=== PATIENT | female | born 1970 | race Caucasian/White ===

== ENCOUNTER 2017-10-29 00:47 | Inpatient (IN) | payer OTHER ==
[2017-10-29] VITALS (7 sets, daily range): BP systolic 98–118; BP diastolic 58–79
[~2017-10-29] VITALS: Ht 162.6 cm; Wt 113.1 kg
--- NOTE | ~2017-10-29 | D ---
[facility] [place] [address] DISCHARGE SUMMARY Name: FARHAT POWER Wanda Room #: 448-P [facility] IN ..#: [id number] Admission: 10/29/17 Attend Phys: Tomasz Trujillo Discharge: 11/04/17 Date of : 68 Report #: [id number] THIS REPORT FOR: //name// CC: Maribel Trujillo DATE OF SERVICE: 11/04/2017 HISTORY OF PRESENT ILLNESS: The patient is a 47-year-old female with complicated past medical history, who came to the hospital for exacerbation of left hip pain, that started the day before admission. The patient had hip replacement about a year ago. She sustained fracture after that, as a result of fall. At this time, the patient was found to have no fracture, but her CRP was elevated. Please refer to admission H and P for details. HOSPITALIZATION COURSE: The patient was admitted with acute on chronic left hip pain. Orthopedic surgeon was consulted. Infection was suspected based on elevated CRP. Fluid aspiration grew MSSA. Infectious disease was consulted, and the patient was treated with cefazolin. The patient did well. At some point, hematoma was also suspected, but ultrasound did not show significant blood collection. The patient was also found to have elevated glucose greater than 500s, that has normalized on IV fluids and insulin. The patient also developed anemia when she was here in the hospital. She does have a chronic anemia, with hemoglobin of 7.0 to 8.7. Lowest hemoglobin was 6.4. At that point, the patient received blood transfusion. Currently, hemoglobin is 7.6. The patient's multiple chronic medical conditions are stable. She will be discharged home today on outpatient followup. Final recommendation regarding antibiotics are pending. The patient will go home once antibiotic regimen is determined. DISCHARGE DIAGNOSES: 1. Left hip pain, likely due to infection, aspiration is consistent with methicillin-susceptible Staphylococcus aureus. The patient is treated with Ancef. Duration and dose will be determined by infectious disease specialist. 2. Morbid obesity. 3. Diabetes mellitus type 2, hemoglobin A1c of 7.8%. 4. Hypothyroidism, TSH approximately 10. Continue same dose Synthroid, and repeat TSH as an outpatient in 3-4 weeks. 5. Chronic respiratory failure, on oxygen supplementation. 6. Acute on chronic anemia, status post blood transfusion. Current hemoglobin is 7.6. [address] [address] DISCHARGE SUMMARY Name: FARHAT POWER Wanda Room #: 448-[facility] IN ..#: [id number] Admission: 10/29/17 Attend Phys: Tomasz Trujillo Discharge: 11/04/17 Date of : 68 Report #: [id number] 8. Chronic kidney disease stage 3. DISPOSITION: The patient is discharged home. DISCHARGE MEDICATIONS: Please refer to the medication reconciliation list. Again, antibiotic regimen will be determined by infectious disease specialist. Currently, the patient is on Ancef IV. FOLLOWUP PLAN: 1. Follow up with the primary care physician in 1-2 weeks. 2. Follow up with infectious disease specialist and orthopedic surgeon as advised. I spent greater than 30 minutes to coordinate the patient's discharge from the hospital. <ELECTRONICALLY SIGNED> By: Rafy Buchanan MD 11/05/17 0709 [id number] [id number] Rafy Buchanan MD /nt
--- NOTE | ~2017-10-29 | S ---
[facility] [place] [address] SURGICAL PATH RPT PROCEDURE Name: FARHAT POWER Room #: 448-P ADM IN M.R.#: [id number] Admission: 10/29/17 Date of : 68 Discharge: Report #: [id number] Path Case #: [id number] PATHOLOGY REPORT COLLECTION DATE: 10/31/2017 RECEIVED DATE: 10/31/2017 SUBMITTING PHYS: Dr. Tomasz Trujillo OTHER PHYS: Dr. Maribel Bishop SPECIMEN(S) RECEIVED: A.Peripheral smear * * * * * * * * * * * * FINAL DIAGNOSIS: Peripheral blood smear: - Pancytopenia including severe normocytic anemia, moderate leukopenia and moderate thrombocytopenia (see comment). COMMENT: Overall, the peripheral blood smear shows pancytopenia with severe normocytic anemia, moderate leukopenia and moderate thrombocytopenia. The etiology of the findings is unclear based entirely on slide review. No immature or markedly atypical cells are identified. Potential causes of pancytopenia include infections, drug reactions and primary bone marrow disorders. Other causes of normocytic anemia include anemia of chronic disease, treated and/or compensated vitamin and mineral deficiencies, acute blood loss, dilutional and primary bone marrow disorders. Correlation with clinical history and additional laboratory data is recommended. (CLW:aquiles; 11/03/2017) PATHOLOGIST: Deepa Trivedi M.D. REPORT ELECTRONICALLY SIGNED BY: Deepa Trivedi M.D. DATE/TIME: 11/03/2017 21:21 * * * * * * * * * * * * MICROSCOPIC DESCRIPTION: CBC Data (10/31/17): WBC 2,500 /uL, RBC 2.47, hemoglobin 7.0 g/dL, hematocrit 21.5%, MCV 86.9 fL, MCH 28.2 pg, MCHC 32.4 g/dL, RDW 16.9%. Platelet count 90,000 /uL. Manual white blood cell differential: segs 62%, lymphs 30%, and monos 8%. Peripheral Blood Smear: Cytomorphological examination of the Arguelles's stained peripheral blood smear confirms the provided data. Red blood cells show severe normocytic anemia with mild anisocytosis. No significant poikilocytosis is identified. No schistocytes or microspherocytes are seen. White blood cells are mild to moderately decreased in [address] [address] SURGICAL PATH RPT PROCEDURE Name: FARHAT POWER Wanda Room #: 448-P ADM IN M.R.#: [id number] Admission: 10/29/17 Date of : 68 Discharge: Report #: [id number] Path Case #: [id number] number. They are predominantly segmented neutrophils with reactive changes. They are without significant dyspoiesis or significant left shift. Lymphocytes are predominantly small, round and mature appearing with condensed chromatin and scant cytoplasm with admixed large granular lymphocytes and rare reactive appearing lymphocytes. On scanning, no markedly atypical lymphoid cells are seen. Monocytes are mature. Platelets are mild to moderately decreased in number and mainly normal in morphology with rare larger platelets noted. GROSS PATHOLOGY: Received are three peripheral blood smears (one Arguelles stained and two unstained) all labeled Farhat Power CLINICAL HISTORY: 47 year old woman with pancytopenia. Morphologic review of the peripheral blood smear is requested by the patient's physician. INITIAL CPT CODE(S): A; [place] Professional services performed by [facility] at [place] [address], [place] [address] Technical services performed by [facility] at [address] [place] [address], [address], [place] [address]. [facility] [address] [place] [address] PHONE: [phone] DIRECTOR: Lawrence Duncan M.D. * * * END OF REPORT * * *
--- NOTE | ~2017-10-29 | HC ---
[facility] [place] [address] CONSULTATION Name: POWERFARHAT Wanda Room #: 448-P [facility] IN M.R.#: [id number] Admission: 10/29/17 Attend Phys: Tomasz Trujillo Discharge: 11/04/17 Date of : 68 Report #: [id number] THIS REPORT FOR: //name// CC: Maribel Trujillo DATE OF SERVICE: 10/29/2017 CHIEF COMPLAINT: Left hip pain. HISTORY OF PRESENT ILLNESS: The patient is a 47-year-old female who was admitted through the Emergency Department at [facility] today for complaints of worsening left hip pain over the last 2 days. The patient reports that she broke her left hip in 05/2016 and in 08/2016, the implant became infected and she had an explant performed at that time. The patient reports that the treating surgeon at [facility] told her that they do not recommend reimplantation and that she would just have to live with this. Since that time, the patient has been using a wheelchair for ambulation, although she does stand to do transfers. The patient has been on chronic pain management for the left hip since then. The patient denies any recent falls, change of activity level or any other new injuries, but over the last 2 days, has noticed worsening left hip pain. She also complains of a wound over the lateral aspect of the left hip that she attributes to using diclofenac topical gel daily for pain control and thinks that this may have contributed to the skin irritation and wound. The patient localizes the pain to the anterior aspect of the hip and anterior-superior aspect of the thigh. She has not noticed any redness or swelling in the left hip, although does note that her lower legs bilaterally have been more red, swollen and tender lately. PAST MEDICAL HISTORY: Significant for SOM, dehydration, hip pain, diabetes, hypertension, hypothyroid, COPD and tachycardia. PAST SURGICAL HISTORY: Significant for left hip fracture in 05/2016, followed by left hip hemiarthroplasty. Left hip infection with hardware explantation in 08/2016. MEDICATIONS: Please see medical record for complete list, but include hydrocodone, diclofenac gel topical to the left hip, levothyroxine, paroxetine, atorvastatin, ziprasidone, baclofen, mirtazapine, pantoprazole, trazodone, pregabalin, zolpidem, losartan, insulin lispro, ropinirole, clonazepam, Lomotil, Symbicort, Spiriva and metformin. ALLERGIES: No known drug allergies. SOCIAL HISTORY: The patient reports that she lives with her ulgeihcm-pi-afp; is nonambulatory, except to stand to do transfers, otherwise uses a wheelchair for [address] [address] CONSULTATION Name: FARHAT POWER Room #: 448-P [facility] IN M.R.#: [id number] Admission: 10/29/17 Attend Phys: Tomasz Trujillo Discharge: 11/04/17 Date of : 68 Report #: [id number] ambulation assistance. She is a former cigarette smoker with a 06-sjzf-elbs history. She denies any alcohol use. PHYSICAL EXAMINATION: GENERAL: The patient is a well-developed, obese female, in no acute distress. VITAL SIGNS: Temperature 36.9 degrees Celsius, blood pressure 98/67 and pulse rate 103. Height 162 cm and weight 113 kilos. EXTREMITIES: Left lower extremity: Left lower extremity is neurovascularly intact. Edema and erythema noted in the bilateral lower legs. There is tenderness to palpation of the anterior aspect and lateral aspect of the left hip. Pain with attempted hip range of motion. There is a lateral-based incision that appears healed. At the superior most aspect of the incision, there is an area of superficial skin breakdown, approximately 3 cm x 3 cm; in the center of this, there appears to be a small tract. This was not probed to check for deficit. No exudates noted about this. No significant warmth or redness noted about the left hip. LABORATORY DATA: White cell count 3.0, hemoglobin 8.7 and ESR 69. Glucose random is 302. IMAGING: AP of the pelvis performed on 10/29/2017 showed surgical absence of the proximal left femur, including the intertrochanteric region and the left femoral head heterotopic bone is present about the capsule of the left hip and appears chronic. No evidence of definite fracture or bone destruction. IMPRESSION: 1. Zomxu-xz-pukddwt left hip pain, status post left hip infection with hardware explantation in 08/2016. Small wound on the lateral aspect of the left hip. 2. Diabetes mellitus, uncontrolled. 3. Bilateral lower extremity cellulitis. 4. Multiple other comorbidities. PLAN: We discussed the patient does have a wound on the lateral aspect of the left hip; she says that this is a newer wound and had not been there previously. She has been using diclofenac gel on the hip for pain control and thinks that this may have caused some skin irritation and may have caused this wound. I am not sure that this is the case. However, there has already been a culture taken of this area and these are pending. We will await these results. The patient has already been seen by Infectious Disease and we will help them handle this left hip wound and antibiotic treatment. Pending the results of this culture, we could consider further imaging to follow up the left hip pain. However, there is no evidence of bony destruction seen on the x-rays, but this does not rule out an osteomyelitis. Her treating surgeon at [facility], per the patient, reports that they did not recommend the reimplantation of hardware and we discussed if the patient wished to obtain a second opinion on this. She could do that; however, I do not think that this is a procedure of that to be [facility] [address] [place] [address] CONSULTATION Name: FARHAT POWER Room #: 448-P [facility] IN [facility].#: [id number] Admission: 10/29/17 Attend Phys: Tomasz Trujillo Discharge: 11/04/17 Date of : 68 Report #: [id number] performed for her while she is admitted to the hospital. We will focus on pain control and making sure that there is not a deep infection in the left hip at this point and then she could seek a second opinion if desired after being discharged from the hospital. <ELECTRONICALLY SIGNED> By: BRIONNA Dumont 11/07/17 1533 1347 [id number] BRIONNA Dumont /nt
--- NOTE | ~2017-10-29 | HC ---
[facility] [place] [address] CONSULTATION Name: FARHAT POWER Wanda Room #: 448-P ADM IN M.R.#: [id number] Admission: 10/29/17 Attend Phys: Tomasz Trujillo Discharge: Date of : 68 Report #: [id number] THIS REPORT FOR: //name// CC: Maribel Trujillo DATE OF SERVICE: 10/29/2017 REASON FOR CONSULTATION: I was asked to evaluate concerning possible left hip infection. HISTORY OF PRESENT ILLNESS: The patient was a 47-year-old diabetic who had a fractured left hip, underwent total hip arthroplasty in 2016. She subsequently developed infection within several months with hardware explantation. Prolonged IV antibiotic therapy. She was left with a Girdlestone. No plan for reimplantation. The patient has been essentially wheelchair bound since. She is able to stand on her right leg, but does not walk. She lives at home with her omzzcvdi-ax-mze. Blood sugar control has been fair. Two days ago, noticed increased pain in her left hip. She had no fever, chills or sweats. She has had lower extremity swelling. Blood sugar control has worsened. The patient does note that she had an MRSA infection in 2016. REVIEW OF SYSTEMS: Notes no headache, cough, sputum, nausea, vomiting, diarrhea, dysuria or frequency. She has had no specific trauma. Yesterday, she did note some drainage to her left hip incision. ALLERGIES: None known. MEDICATIONS: As noted on her MAR, now on vancomycin. PAST MEDICAL HISTORY: COPD, smoker, hypertension, hypothyroidism, diabetes, anxiety and depression. PAST SURGICAL HISTORY: She had right knee surgery. FAMILY HISTORY: COPD. SOCIAL HISTORY: Past smoker of cigarettes. No significant alcohol intake. PHYSICAL EXAMINATION: VITAL SIGNS: Afebrile and hemodynamically stable. GENERAL: She was alert and cooperative. Had multiple scars over her face, back, upper extremities. HEENT: Unremarkable. NECK: Supple. LUNGS: Clear. [facility] [address] [place] [address] CONSULTATION Name: FARHAT POWER Room #: 448-P [facility] IN .R.#: [id number] Admission: 10/29/17 Attend Phys: Tomasz Trujillo Discharge: Date of : 68 Report #: [id number] HEART: Regular, without murmur. ABDOMEN: Soft and nontender. EXTREMITIES: 2+ lower extremity edema with venous stasis dermatitis changes and bilateral mild erythema. Left leg had erythema extending up to her medial distal thigh. No adenopathy in the groin. Left hip incision had a small wound to the proximal portion with apparent sinus tract. Serosanguineous drainage was identified. No surrounding erythema. No fluctuance. LABORATORY STUDIES: Blood glucose levels have been 300-550 range. Sodium 135, potassium 5.6, bicarbonate 29, creatinine 1.6, lactate 1.8. CRP 29, hemoglobin 8.7, platelet count 108,000. WBC 3, 65% segs, 24% lymphs. Blood cultures are pending. X-ray shows postoperative changes from Girdlestone. MRI scan is pending. IMPRESSION: A 47-year-old diabetic with venous stasis dermatitis changes along with increased pain in her left hip and sinus tract. Would be concerned about residual sequestrum of infection. She previously had methicillin resistant Staphylococcus aureus. RECOMMENDATION: Continue MRSA coverage with vancomycin. Await MRI scan. Obtain sedimentation rate, and culture from the sinus tract. <ELECTRONICALLY SIGNED> By: Aj Osorio MD 10/30/17 2102 1111 [id number] Aj Osorio MD /nt
[~2017-10-29 00:47] MED LIST: ALBUTEROL NEB; ALBUTEROL2.5 MG/32 IH; AMARYL2 MG PO; AMBIEN 5 MG TABL5 M1 PO; AUGMENTIN 875-1 EACH PO; DESYREL150 MG PO; DUONEB 2.5-0.5 M3 ML INH; GEMFIBROZIL; GLUCOPHAGE1000 MG PO; LEVAQUIN 500 M500 MG PO; OXYGEN; PAXIL10 MG PO; PREDNISOLONE 5 M5 M1 PO; PRINIVIL; PROTONIX 20 MG20 M1 PO; PROVENTIL HFA6.7 G1 INH; SYNTHROID150 MCG PO
[2017-10-29 01:43] LABS: CALCIUM 9.3 mg/dL (8.5-10.1); CREATININE 1.6 mg/dL (0.6-1.0); POTASSIUM 5.6 mmol/L (3.5-5.1)
[2017-10-29 01:44] LABS: ABSOLUTE NEUTROPHILS 1.9 thou/uL (1.4-8.2); EOSINOPHILS 1.4 % (0.0-3.0); HEMATOCRIT 26.9 % (37.0-47.0); HEMOGLOBIN 8.7 gm/dL (12.0-15.0); LYMPHOCYTES 24.5 % (24.0-44.0); MCH 28.4 pg (26.0-34.0); MCHC 32.1 g/dL (28.0-37.0); MCV 88.2 fL (80.0-100.0); MONOCYTES 7.8 % (1.0-8.0); PLATELET COUNT 108 thou/uL (150-400); POLYS 65.3 % (36.0-66.0); RBC 3.05 mil/uL (4.20-5.00); RDW 16.5 % (10.5-14.5)
[2017-10-29] MEDS ORDERED: LIPITOR 20 MG T20 M1 PO (04:15)
[2017-10-29] MEDS ORDERED: ZIPRASIDONE HCL60 MG PO (04:17)
[2017-10-29] MEDS ORDERED: LIORESAL 10 MG10 MG PO (04:18)
[2017-10-29] MEDS ORDERED: DICLOFENAC SODI75 MG PO (04:21)
[2017-10-29] MEDS ORDERED: REMERON15 MG PO (04:22)
[2017-10-29] MEDS ORDERED: PROTONIX 20 MG20 M1 PO (04:24)
[2017-10-29] MEDS ORDERED: TRAZODONE HCL100 MG PO (04:26)
[2017-10-29] MEDS ORDERED: LYRICA 75 MG CA75 MG PO (04:27)
[2017-10-29] MEDS ORDERED: AMBIEN 5 MG TABL5 M1 PO (04:27)
[2017-10-29] MEDS ORDERED: COZAAR 25 MG TA25 MG PO (04:29)
[2017-10-29] MEDS ORDERED: REQUIP5 MG PO (04:32)
[2017-10-29] MEDS ORDERED: HUMALOG100 UNIT/1 SUBQ (04:32)
[2017-10-29] MEDS ORDERED: CLONAZEPAM 0.50.5 M1 PO (04:33)
[2017-10-29] MEDS ORDERED: LOMOTIL TABLET1 EACH PO (04:34)
[2017-10-29] MEDS ORDERED: SYMBICORT160 MCG/4. INH (04:36)
[2017-10-29] MEDS ORDERED: SPIRIVA INH (04:37)
[2017-10-29] MEDS ORDERED: NORCO 5-325 TA1 EACH PO (04:38)
[2017-10-29 05:55] LABS: ALBUMIN 3.3 g/dL (3.4-5.0); DIRECT BILIRUBIN 0.2 mg/dL (<0.1-0.3); TOTAL BILIRUBIN 0.6 mg/dL (<0.1-1.0); TOTAL PROTEIN 8.3 g/dL (6.4-8.2)
[2017-10-30] VITALS (12 sets, daily range): BP systolic 95–153; BP diastolic 56–98
[2017-10-30 04:12] LABS: GLYCOHEMOGLOBIN (HGB A1C) 7.8 % (4.8-5.6)
[2017-10-31 05:31] VITALS: BP 113/56
[2017-10-31 05:41] LABS: HEMATOCRIT 21.5 % (37.0-47.0); MCH 28.2 pg (26.0-34.0); MCHC 32.4 g/dL (28.0-37.0); MCV 86.9 fL (80.0-100.0); PLATELET COUNT 90 thou/uL (150-400); RBC 2.47 mil/uL (4.20-5.00); RDW 16.9 % (10.5-14.5); WBC 2.5 thou/uL (4.0-11.0)
[2017-10-31 06:03] LABS: ALBUMIN 2.7 g/dL (3.4-5.0); CALCIUM 8.5 mg/dL (8.5-10.1); CREATININE 1.7 mg/dL (0.6-1.0); MAGNESIUM 2.1 mg/dL (1.8-2.4); POTASSIUM 4.9 mmol/L (3.5-5.1); TOTAL BILIRUBIN 0.7 mg/dL (<0.1-1.0); TOTAL PROTEIN 7.1 g/dL (6.4-8.2)
[2017-10-31 06:43] LABS: ABSOLUTE NEUTROPHILS 1.6 thou/uL (1.4-8.2); ANISOCYTOSIS 1+
[2017-10-31 08:00] VITALS: BP 119/70
[2017-10-31 11:06] LABS: % SATURATION 13 % (20-39); IRON 43 ug/dL (50-170); TIBC 326 ug/dL (250-450)
[2017-10-31 16:00] VITALS: BP 114/67
[2017-10-31 19:13] VITALS: BP 125/73
[2017-11-01 04:06] VITALS: BP 121/82
[2017-11-01 06:31] LABS: HEMATOCRIT 21.3 % (37.0-47.0); HEMOGLOBIN 6.9 gm/dL (12.0-15.0); MCH 28.5 pg (26.0-34.0); MCHC 32.5 g/dL (28.0-37.0); MCV 87.6 fL (80.0-100.0); RBC 2.43 mil/uL (4.20-5.00); WBC 2.2 thou/uL (4.0-11.0)
[2017-11-01 08:02] VITALS: BP 118/76
[2017-11-01 11:47] LABS: OBSERVED RETIC COUNT 3.5 % (0.6-2.6)
[2017-11-01 15:27] VITALS: BP 108/66
[2017-11-01 19:57] VITALS: BP 125/71
[2017-11-02 04:36] VITALS: BP 109/56
[2017-11-02 09:47] VITALS: BP 107/56
[2017-11-02 19:19] VITALS: BP 123/67
[2017-11-02 20:10] LABS: ABSOLUTE NEUTROPHILS 1.9 thou/uL (1.4-8.2); BASOPHILS 0.8 % (0.0-2.0); HEMOGLOBIN 6.9 gm/dL (12.0-15.0); LYMPHOCYTES 26.4 % (24.0-44.0)
[2017-11-02 20:12] LABS: EOSINOPHILS 1.6 % (0.0-3.0); HEMATOCRIT 20.8 % (37.0-47.0); MCH 28.9 pg (26.0-34.0); MCHC 33.1 g/dL (28.0-37.0); MCV 87.2 fL (80.0-100.0); MONOCYTES 8.4 % (1.0-8.0); PLATELET COUNT 113 thou/uL (150-400); POLYS 62.8 % (36.0-66.0); RBC 2.38 mil/uL (4.20-5.00); RDW 17.2 % (10.5-14.5)
[2017-11-03 04:49] VITALS: BP 120/61
[2017-11-03 06:39] LABS: MCHC 33.3 g/dL (28.0-37.0); MCV 87.1 fL (80.0-100.0); PLATELET COUNT 111 thou/uL (150-400); RBC 2.21 mil/uL (4.20-5.00); RDW 17.4 % (10.5-14.5); WBC 3.5 thou/uL (4.0-11.0)
[2017-11-03 06:47] LABS: CALCIUM 8.8 mg/dL (8.5-10.1); CREATININE 1.4 mg/dL (0.6-1.0); MAGNESIUM 2.4 mg/dL (1.8-2.4); POTASSIUM 4.9 mmol/L (3.5-5.1)
[2017-11-03 06:54] LABS: HEMATOCRIT 19.2 % (37.0-47.0); HEMOGLOBIN 6.4 gm/dL (12.0-15.0)
[2017-11-03 07:41] VITALS: BP 121/72
[2017-11-03 07:58] LABS: ABSOLUTE NEUTROPHILS 2.3 thou/uL (1.4-8.2); ANISOCYTOSIS 1+; PLATELET ESTIMATE DECREASED
[2017-11-03 11:07] VITALS: BP 121/72
[2017-11-03 15:55] VITALS: BP 133/76
[2017-11-03 16:14] VITALS: BP 118/61; BP 139/89
[2017-11-03 20:00] VITALS: BP 139/89
[2017-11-04 01:15] LABS: ABSOLUTE NEUTROPHILS 2.2 thou/uL (1.4-8.2); BASOPHILS 0.5 % (0.0-2.0); EOSINOPHILS 1.1 % (0.0-3.0); HEMATOCRIT 22.9 % (37.0-47.0); HEMOGLOBIN 7.6 gm/dL (12.0-15.0); MCH 28.7 pg (26.0-34.0); MONOCYTES 8.1 % (1.0-8.0); PLATELET COUNT 108 thou/uL (150-400); POLYS 65.3 % (36.0-66.0); RBC 2.63 mil/uL (4.20-5.00); RDW 16.4 % (10.5-14.5); WBC 3.4 thou/uL (4.0-11.0)
[2017-11-04 01:28] LABS: CALCIUM 8.6 mg/dL (8.5-10.1); CREATININE 1.2 mg/dL (0.6-1.0); POTASSIUM 5.1 mmol/L (3.5-5.1)
[2017-11-04 03:42] VITALS: BP 90/54
[2017-11-04 08:56] VITALS: BP 106/70
[2017-11-04] MEDS ORDERED: NORCO 5-325 TA1 EACH PO (13:27)
[2018-05-25] MEDS ORDERED: NORCO 10-325 T1 EACH PO (21:17)
== END 2017-11-04 18:40 | disposition home or self-care (01) | DRG 871 ==
LOC: ER 00:47 → 4S 03:22 → EROBS 03:22 → 4S 03:48 → ENTRNSPT 11-04 16:59 → 4S 11-04 18:40
PROVIDERS: Emergency Medicine; Hospitalist; Internal Medicine Endocrinology, Diabetes & Metabolism; Nurse Practitioner; Nurse Practitioner Acute Care
PROC: 0S9B3ZX Drainage of Left Hip Joint, Percutaneous Approach, Diagnostic (ICD-10-PCS; principal; 2017-10-30)
PROC: 30233N1 Transfusion of Nonautologous Red Blood Cells into Peripheral Vein, Percutaneous Approach (ICD-10-PCS; 2017-11-03)
PROC: 3E0U3BZ Introduction of Anesthetic Agent into Joints, Percutaneous Approach (ICD-10-PCS; 2017-11-03)
DX: A41.9 Sepsis, unspecified organism (principal); E43 Unspecified severe protein-calorie malnutrition; M96.840 Postprocedural hematoma of a musculoskeletal structure following a musculoskeletal system procedure; N17.9 Acute kidney failure, unspecified; L03.116 Cellulitis of left lower limb; L03.115 Cellulitis of right lower limb; Z68.41 Body mass index [BMI] 40.0-44.9, adult; J96.10 Chronic respiratory failure, unspecified whether with hypoxia or hypercapnia; D61.818 Other pancytopenia; J44.9 Chronic obstructive pulmonary disease, unspecified; Z96.642 Presence of left artificial hip joint; I87.2 Venous insufficiency (chronic) (peripheral); E66.01 Morbid (severe) obesity due to excess calories; D64.9 Anemia, unspecified; N18.3 Chronic kidney disease, stage 3 (moderate); E11.22 Type 2 diabetes mellitus with diabetic chronic kidney disease; G25.81 Restless legs syndrome; I12.9 Hypertensive chronic kidney disease with stage 1 through stage 4 chronic kidney disease, or unspecified chronic kidney disease; E03.9 Hypothyroidism, unspecified; F31.9 Bipolar disorder, unspecified; E11.65 Type 2 diabetes mellitus with hyperglycemia; E86.0 Dehydration; F41.9 Anxiety disorder, unspecified; F17.210 Nicotine dependence, cigarettes, uncomplicated; Y83.8 Other surgical procedures as the cause of abnormal reaction of the patient, or of later complication, without mention of misadventure at the time of the procedure; Z99.81 Dependence on supplemental oxygen; Z79.4 Long term (current) use of insulin; Y92.89 Other specified places as the place of occurrence of the external cause; Z79.84 Long term (current) use of oral hypoglycemic drugs; Z79.899 Other long term (current) drug therapy; Z87.81 Personal history of (healed) traumatic fracture; Z82.5 Family history of asthma and other chronic lower respiratory diseases; Z23 Encounter for immunization
CPT/HCPCS: 10100

== ENCOUNTER 2017-12-15 16:23 | Emergency (ER) | payer OTHER ==
[~2017-12-15] VITALS: Ht 162.6 cm; Wt 99.8 kg
[~2017-12-15 16:23] MED LIST changes: +CLONAZEPAM 0.50.5 M1 PO; +COZAAR 25 MG TA25 MG PO; +DICLOFENAC SODI75 MG PO; +HUMALOG100 UNIT/1 SUBQ; +LIORESAL 10 MG10 MG PO; +LIPITOR 20 MG T20 M1 PO; +LOMOTIL TABLET1 EACH PO; +LYRICA 75 MG CA75 MG PO; +NORCO 5-325 TA1 EACH PO; +REMERON15 MG PO; +REQUIP5 MG PO; +SPIRIVA INH; +SYMBICORT160 MCG/4. INH; +TRAZODONE HCL100 MG PO; +ZIPRASIDONE HCL60 MG PO
[2017-12-15 18:05] LABS: HEMATOCRIT 27.6 % (37.0-47.0); HEMOGLOBIN 9.2 gm/dL (12.0-15.0); MCHC 33.2 g/dL (28.0-37.0); MCV 90.4 fL (80.0-100.0); PLATELET COUNT 74 thou/uL (150-400); RBC 3.05 mil/uL (4.20-5.00); RDW 18.7 % (10.5-14.5); WBC 2.3 thou/uL (4.0-11.0)
[2017-12-15 18:14] LABS: CALCIUM 9.2 mg/dL (8.5-10.1); CREATININE 1.4 mg/dL (0.6-1.0); POTASSIUM 4.7 mmol/L (3.5-5.1)
[2017-12-15 18:28] LABS: ABSOLUTE NEUTROPHILS 1.4 thou/uL (1.4-8.2)
[2017-12-15 18:29] LABS: ANISOCYTOSIS 2+
[2017-12-15 18:30] LABS: LARGE PLATELETS RARE
== END 2017-12-15 19:16 | disposition home or self-care (01) ==
LOC: ER 16:23
PROVIDERS: Emergency Medicine
DX: S20.212A Contusion of left front wall of thorax, initial encounter (principal); J44.9 Chronic obstructive pulmonary disease, unspecified; L89.329 Pressure ulcer of left buttock, unspecified stage; E11.622 Type 2 diabetes mellitus with other skin ulcer; G89.29 Other chronic pain; F31.9 Bipolar disorder, unspecified; I10 Essential (primary) hypertension; F17.210 Nicotine dependence, cigarettes, uncomplicated; Z86.14 Personal history of Methicillin resistant Staphylococcus aureus infection; X58.XXXA Exposure to other specified factors, initial encounter; Y93.89 Activity, other specified; Y92.89 Other specified places as the place of occurrence of the external cause; Y99.8 Other external cause status; Z79.4 Long term (current) use of insulin

== ENCOUNTER 2018-04-16 00:22 | Inpatient (IN) | payer OTHER ==
[~2018-04-16] VITALS: Ht 160 cm; Wt 120.2 kg
[2018-04-16] VITALS (8 sets, daily range): BP systolic 96–137; BP diastolic 54–90
--- NOTE | ~2018-04-16 | HC ---
[facility] [place] [address] CONSULTATION Name: FARHAT POWER Room #: 357-P ADM IN .R.#: [id number] Admission: 04/16/18 Attend Phys: Magdy Alfonso MD Discharge: Date of : 68 Report #: [id number] THIS REPORT FOR: //name// CC: SIDDHARTHA physician/PCP Magdy Alfonso DATE OF SERVICE: 04/16/2018 CHIEF COMPLAINT: Ulcerations to the left posterior thigh. HISTORY OF PRESENT ILLNESS: This is a 47-year-old white female patient admitted with hyperglycemia. She was noted to have ulcerations on her left posterior thigh and a previous surgical wound in her left hip area and I have been asked to see her with regard to wound care. The patient denies pain in these areas. She states she has had some problems for quite a while. She is not able to ambulate due to the previous hip surgery, likely a Girdlestone type procedure. PAST MEDICAL HISTORY: Positive for COPD, acute kidney injury, hyperglycemia, bipolar disorder and diabetes. ALLERGIES: None. MEDICATIONS: Include albuterol, Synthroid, Paxil, Lipitor, Lioresal, Voltaren, Remeron, Protonix, trazodone, Lyrica, Ambien, Cozaar, Requip, clonazepam, Lomotil, Symbicort, Spiriva, ziprasidone, Emblem, Diflucan, Medrol Dosepak, Keflex, Glucophage. FAMILY HISTORY: Positive for COPD in her mother. SOCIAL HISTORY: The patient did smoke cigarettes previously. Denies alcohol use. REVIEW OF SYSTEMS: CONSTITUTIONAL: The patient denies fever, chills or weight loss. NEUROLOGICAL: The patient denies focal weakness. ENT: The patient denies earache, nasal drainage, sore throat. CARDIOVASCULAR: The patient denies chest pain or palpitations or diaphoresis. PULMONARY: The patient denies cough, shortness of breath. GASTROINTESTINAL: The patient denies nausea, vomiting, diarrhea or abdominal pain. ORTHOPEDIC: The patient does have some shortening of her left lower extremity. She states she is unable to ambulate due to previous hip surgery. Other 14-point review of systems is negative. PHYSICAL EXAMINATION: VITAL SIGNS: At this time include pulse 94, respiratory rate 16, blood pressure [address] [address] CONSULTATION Name: FARHAT POWER Room #: 357-[facility] IN [facility].#: [id number] Admission: 04/16/18 Attend Phys: Magdy Alfonso MD Discharge: Date of : 68 Report #: [id number] 114/77 and temperature 99.0. GENERAL: This is a chronically ill-appearing female patient who appears to be in minimal distress. HEENT: Head is normocephalic. LUNGS: Clear. NECK: Supple. LUNGS: Clear. HEART: Regular rate and rhythm. ABDOMEN: Soft, bowel sounds present. EXTREMITIES: Lower extremities demonstrate a small cutaneous abscesses or folliculitis sites including the left posterior thigh, most are clean and granulating, do not appear to be infected or abscessed at this time. There is a small residual surgical wound to the left anterior hip area. There is no tunneling or undermining at this time. NEUROLOGIC: The patient is alert, does move all 4 extremities spontaneously. LABORATORY DATA: Includes sodium 139, potassium 5.5, chloride 106, CO2 is 27, BUN 26, creatinine 1.4, glucose 300, total protein 7.2, albumin 3.0. White blood cell count is low at 2.4, hemoglobin 9.7. CLINICAL IMPRESSION: 1. Small ulcerations to the left posterior thigh, likely on the basis of small cutaneous abscesses that have spontaneously drained. 2. Surgical wound to the left hip, mostly closed. 3. Uncontrolled type 2 diabetes mellitus. 4. History of osteomyelitis, left hip, status post surgical intervention, possibly a Girdlestone procedure. RECOMMENDATIONS: At this point in time, we will recommend topical gentamicin ointment and bordered gauze dressing to all areas including the left hip and left posterior thigh. She will need turning and repositioning every 2 hours. She will get aggressive nutritional support and continue current medications. I appreciate being asked to see her in consultation. <ELECTRONICALLY SIGNED> By: Juan Alberto Garnica MD 04/17/18 0750 [id number] [id number] Juan Alberto Garnica MD /nt
--- NOTE | ~2018-04-16 | HC ---
[facility] [place] [address] CONSULTATION Name: FARHAT POWER Room #: 357-P ADM IN ..#: [id number] Admission: 04/16/18 Attend Phys: Magdy Alfonso MD Discharge: Date of : 68 Report #: [id number] THIS REPORT FOR: //name// CC: [facility] physician/PCP Magdy Alfonso MD Edna DATE OF SERVICE: 04/16/2018 TRENCHER DRIVER: Magdy Alfonso M.D. REASON FOR CONSULTATION: Cytopenia for months. HISTORY OF PRESENT ILLNESS: The patient is a 47-year-old female who came in for high sugar. She evidently had a recent UTI and was placed on antibiotic, found to have sugars that were high, came to the ER. Here, she was noted to have pancytopenia. On admit, her white count was 2.4. Note that on an ER visit in November, it was 2.3; back in 10/2017, it ranged between 2.2 and 3.5. Her hemoglobin on admit was 9.7. Note that it is the highest it has been since October; back then, it was 8.7 as low as 6.9, and then 9.2 in November. Also, note that her MCV during this time has increased a little bit from about 80s back then to 94, platelet count back then had ranged in October between 89 and 113 and then in November, it was 74; on admit here 40. Differential showed that there is ANC of 2100. Note that when she was here back in October, they did a peripheral smear and was not thought to have any atypical forms. Differential does have decreased lymphocytes and monocytes. Note that they did mention that they do see large platelets. The absolute retic count back in October was 84, which is probably inappropriately low for the patient's amount of anemia. Other labs, I do not have liver functions drawn now, but they are currently pending; in the past, it had been normal. Iron test back in October had been an iron of 43, TIBC 356, percent saturation of 13. The patient did receive three doses of iron sucrose 200 mg daily for 3 days back then and also had C-reactive protein at 29. The patient thinks she may have had an EGD and colonoscopy, maybe 5 years ago, does not recall results, does not recall anything bad with it. Coags were not drawn before. Also lab here notable for peripheral smear pathology review last time she was here. TSH at this admit 0.846. Sed rate 69 back in October. B12 back at last admit had been 856, ferritin and folate pending. Erythropoietin pending. The 25-hydroxy D pending. UA had shown 3+ glucose here. IMAGING: Review does not really show any complex imaging. She did have an MRI of the hip or CT, but it doesnt shows abdomen such as spleen or lymphadenopathy. The patient is a very poor historian and has drifted into sleep during much discussion. She does not appear to be in pain at this time, does not appear to be anxious or in distress, though it is hard to tell because [address] [place] [address] CONSULTATION Name: FARHAT POWER Wanda Room #: 357-P ADM IN M.R.#: [id number] Admission: 04/16/18 Attend Phys: Magdy Alfonso MD Discharge: Date of : 68 Report #: [id number] she is still sleepy. PHYSICAL EXAMINATION: GENERAL: The patient appears her stated age. VITAL SIGNS: She is a very obese female with height of 5 feet 3 on last measurement, 160 cm. Weight is 265 pounds or 120.4 kilograms. Recent blood pressure is 96/57, O2 sat 97%, respirations 16, pulse 70, temperature 96.5 axillary. HEENT: Face is symmetrical. PAST MEDICAL HISTORY: From the chart is notable for history of COPD, requiring 3 liters of oxygen, hypertension, hypothyroidism, type 2 diabetes, supposedly bipolar, anxiety, depression, also a 4-nyea-xgc-day smoker, possible restless leg syndrome, also had a history of a left hip fracture and total hip arthroplasty in 05/2016 with explantation in 08/2016 with MRSA. She has been wheelchair bound since that time, also has chronic pain reported SOCIAL HISTORY: She tells me she lives with family. FAMILY HISTORY: As best I can tell, does not appear to have any hematologic or blood disorders, but it is difficult to tell. MEDICATIONS: In the hospital currently include ropinirole 5 mg at bedtime, trazodone 200 at bedtime, mirtazapine 45 at bedtime, atorvastatin 20 at bedtime, pregabalin 75 b.i.d., paroxetine 60 daily, losartan 25 daily, pantoprazole 20 daily, diclofenac 75 b.i.d., insulin on a sliding scale at 15 units before meals, ipratropium and albuterol 3 mL respiratory therapy q.i.d., levothyroxine 150 mcg daily, baclofen 30 mg t.i.d.; clonazepam 0.5 mg t.i.d., I think that is scheduled; then also various electrolyte replacement medications. ASSESSMENT: 1. Pancytopenia. Counts are really not that much changed from 10/2017 except the platelet count is somewhat lower, this may be related to presumed UTI. We will check additional lab tests including rechecking iron. We will also check a peripheral smear again. We will also check a folate. We will check B12 and TSH if those have not been done recently. We will also check coags, though I do not notice any unusual bruising or bleeding. Also, check ultrasound of abdomen to look for splenomegaly, could also consider bone marrow biopsy if results do not return with information. 2. Hyperglycemia and diabetes, per others. Note that lactate was elevated if I recall. 3. Chronic renal insufficiency with creatinine of around 1.4-1.6. Would use caution with diclofenac. 4. Chronic obstructive pulmonary disease, continues inhalers. 5. Pressure ulcer history, we will defer to others on wound care management. [address] [address] CONSULTATION Name: FARHAT POWER Room #: 357-P [facility] IN M.R.#: [id number] Admission: 04/16/18 Attend Phys: Magdy Alfonso MD Discharge: Date of : 68 Report #: [id number] 6. Hypothyroid, replace. 7. Depression, possible bipolar, possible anxiety. Continue the trazodone, paroxetine, and mirtazapine. 8. History of smoking, encourage cessation. 9. Wheelchair bound. Encourage activity as much as possible. 10. Bipolar, meds per others. 11. Possible urinary tract infection, we will defer to others. We will follow with you. <ELECTRONICALLY SIGNED> By: Ramirez Lechuga MD 04/16/18 1903 [id number] Ramirez Lechuga MD /nt
--- NOTE | ~2018-04-16 | EKG ---
[address] [place] [address] ELECTROCARDIOGRAM REPORT Name: FARHAT POWER Room #: 357-P [facility] IN ..#: [id number] Admission: 04/16/18 Attend Phys: Magdy Alfonso MD Discharge: Date of : 68 Report #: [id number] THIS REPORT FOR: //name// [facility] ED Test Date: 2018-04-16 Test Time: 01:08:25 Pat Name: FARHAT POWER Department: Room: Gender: F Lead Painter: . : 1970 Requested By: Adi Fish Order Number: [id number] MD: Porfirio King Measurements Intervals [place] Rate: 90 P: 47 MI: 165 QRS: -8 QRSD: 84 T: 40 QT: 384 QTc: 470 Interpretive Statements Sinus rhythm Abnormal inferior Q waves No previous ECG available for comparison Electronically Signed On 04-16-2018 8:18:13 CDT by Porfirio King [email or web address] <ELECTRONICALLY SIGNED> By: Porfirio King MD, [facility] 04/16/18 0818 0108 0108 Porfirio King MD, FACC /EPI
[2018-04-16] MEDS ORDERED: NORCO 10-325 T1 EACH PO (00:35)
[2018-04-16] MEDS ORDERED: DIFLUCAN200 MG PO (00:41)
[2018-04-16] MEDS ORDERED: MEDROLDOSEPACK PO (00:42)
[2018-04-16 00:43] LABS: HEMOGLOBIN 9.7 gm/dL (12.0-15.0)
[2018-04-16] MEDS ORDERED: NOVOLOG FL100 UNIT/M SUBQ (00:43)
[2018-04-16] MEDS ORDERED: KEFLEX500 M1 PO (00:44)
[2018-04-16 00:45] LABS: HEMATOCRIT 28.6 % (37.0-47.0); MCH 32.1 pg (26.0-34.0); MCHC 33.8 g/dL (28.0-37.0); MCV 94.8 fL (80.0-100.0); RBC 3.01 mil/uL (4.20-5.00); RDW 15.5 % (10.5-14.5); WBC 2.4 thou/uL (4.0-11.0)
[2018-04-16 00:54] LABS: CALCIUM 8.9 mg/dL (8.5-10.1); CREATININE 1.6 mg/dL (0.6-1.0)
[2018-04-16 01:00] LABS: POTASSIUM 6.5 mmol/L (3.5-5.1)
[2018-04-16 01:05] LABS: URINE BILIRUBIN NEGATIVE (Negative); URINE BLOOD NEGATIVE (Negative); URINE CLARITY CLEAR; URINE COLOR YELLOW; URINE GLUCOSE-RANDOM* 3+ (Negative); URINE KETONES NEGATIVE (Negative); URINE LEUKOCYTES-REFLEX NEGATIVE (Negative); URINE NITRITE-REFLEX NEGATIVE (Negative); URINE PROTEIN (DIPSTICK) NEGATIVE (Negative); URINE UROBILINOGEN 0.2 E.U./dl (0.2-1.0)
[2018-04-16 02:22] LABS: ABSOLUTE NEUTROPHILS 2.1 thou/uL (1.4-8.2); ANISOCYTOSIS SLIGHT; MACROCYTES SLIGHT; POLYCHROMASIA OCCASIONAL
[2018-04-16 02:29] LABS: LARGE PLATELETS RARE; PLATELET COUNT 40 thou/uL (150-400)
[2018-04-16 06:26] LABS: CALCIUM 8.6 mg/dL (8.5-10.1); CREATININE 1.4 mg/dL (0.6-1.0)
[2018-04-16 06:31] LABS: POTASSIUM 5.5 mmol/L (3.5-5.1)
[2018-04-16 09:37] LABS: BE(vivo) 0.4 mmol/L (-2 to +3); PCO2 53.8 mmHg (35.0-45.0); PO2 94.4 mmHg (80.0-100.0); pH 7.318 (7.360-7.450); sO2 96.5 % (92.0-98.0)
[2018-04-16 10:04] LABS: % SATURATION 7 % (20-39); IRON 24 ug/dL (50-170); TIBC 361 ug/dL (250-450)
[2018-04-16 10:05] LABS: APTT 22.4 Seconds (24.5-32.8); DIRECT BILIRUBIN 0.2 mg/dL (<0.1-0.3); PROTIME 10.4 Seconds (9.3-11.4); TOTAL BILIRUBIN 0.4 mg/dL (<0.1-1.0); TOTAL PROTEIN 7.2 g/dL (6.4-8.2)
[2018-04-16 10:21] LABS: FOLIC ACID 16.1 ng/mL (8.6-58.9)
[2018-04-16 22:06] LABS: HEMATOLOGY COMMENTS Note: (()); HEMOGLOBIN 8.2 g/dL (11.1-15.9)
[2018-04-17 03:50] VITALS: BP 153/77
[2018-04-17 04:46] LABS: EOSINOPHILS 1.3 % (0.0-3.0); PLATELET COUNT 45 thou/uL (150-400); POLYS 62.9 % (36.0-66.0)
[2018-04-17 04:48] LABS: ABSOLUTE NEUTROPHILS 1.9 thou/uL (1.4-8.2); BASOPHILS 0.6 % (0.0-2.0); HEMATOCRIT 30.4 % (37.0-47.0); HEMOGLOBIN 10.2 gm/dL (12.0-15.0); LYMPHOCYTES 30.8 % (24.0-44.0); MCHC 33.5 g/dL (28.0-37.0); MCV 95.7 fL (80.0-100.0); MONOCYTES 4.4 % (1.0-8.0); RBC 3.17 mil/uL (4.20-5.00); RDW 15.7 % (10.5-14.5)
[2018-04-17 05:09] LABS: 25-HYDROXY TOTAL 13.7 ng/mL (30.0-100.0)
[2018-04-17 06:10] LABS: GLYCOHEMOGLOBIN (HGB A1C) 8.5 % (4.8-5.6)
[2018-04-17 07:52] VITALS: BP 165/69
[2018-04-17] MEDS ORDERED: NOVOLOG100 UNIT/1 SUBQ (10:16)
[2018-04-17 10:32] VITALS: BP 165/69
[2018-04-17 12:53] VITALS: BP 165/69
[2018-04-17 13:37] VITALS: BP 165/69
[2018-04-17 22:05] LABS: IgG 1711 mg/dL (700-1600)
[2018-04-20 14:09] LABS: CERULOPLASMIN 28.4 mg/dL (19.0-39.0)
[2018-04-20 16:13] LABS: ANA INTERPRETATION Negative (Negative); MITOCHONDRIAL ANTIBODY 6.2 Units (0.0-20.0)
== END 2018-04-17 12:46 | disposition home health service (06) | DRG 637 ==
LOC: ER 00:22 → 3W 01:54 → EROBS 01:54 → 3W 02:42 → ENTRNSPT 04-17 12:32 → EDTRNSPTSTS 04-17 12:35 → 3W 04-17 12:46
PROVIDERS: Emergency Medicine; Hospitalist; Internal Medicine Hematology & Oncology; Nurse Practitioner; Nurse Practitioner Acute Care
DX: E11.65 Type 2 diabetes mellitus with hyperglycemia (principal); R65.11 Systemic inflammatory response syndrome (SIRS) of non-infectious origin with acute organ dysfunction; D61.818 Other pancytopenia; L97.129 Non-pressure chronic ulcer of left thigh with unspecified severity; N17.9 Acute kidney failure, unspecified; J96.10 Chronic respiratory failure, unspecified whether with hypoxia or hypercapnia; J44.9 Chronic obstructive pulmonary disease, unspecified; I12.9 Hypertensive chronic kidney disease with stage 1 through stage 4 chronic kidney disease, or unspecified chronic kidney disease; E03.9 Hypothyroidism, unspecified; F41.9 Anxiety disorder, unspecified; G25.81 Restless legs syndrome; G89.29 Other chronic pain; Z96.642 Presence of left artificial hip joint; E87.5 Hyperkalemia; Z87.891 Personal history of nicotine dependence; L89.159 Pressure ulcer of sacral region, unspecified stage; N18.3 Chronic kidney disease, stage 3 (moderate); E11.22 Type 2 diabetes mellitus with diabetic chronic kidney disease; D50.9 Iron deficiency anemia, unspecified; F31.9 Bipolar disorder, unspecified; Z99.81 Dependence on supplemental oxygen; Z79.4 Long term (current) use of insulin
CPT/HCPCS: 10879

== ENCOUNTER 2018-07-06 19:00 | Inpatient (IN) | payer OTHER ==
[~2018-07-06] VITALS: Ht 162.6 cm; Wt 117.3 kg
--- NOTE | ~2018-07-06 | HC ---
[facility] [place] [address] CONSULTATION Name: FARHAT POWER Room #: 358-P [facility] IN ..#: [id number] Admission: 07/06/18 Attend Phys: Jordan [place] MD Discharge: 07/07/18 Date of : 68 Report #: [id number] THIS REPORT FOR: //name// CC: Jordan [place] [facility] physician/PCP DATE OF SERVICE: 07/07/2018 REFERRING PHYSICIAN: Dr. Alfonso. REASON FOR REFERRAL: Dyspnea. HISTORY OF PRESENT ILLNESS: The patient is a 48-year-old white female who was brought to Emergency Room with altered mental status. In the ER, she was found to be dyspneic, wheezing. A pulmonary consultation was requested. The patient has chronic pain and is on chronic narcotics. She was given Narcan earlier. Mental status did improve since admission. She is currently awake, in no distress. She denies any dyspnea or chest pain or productive cough. PAST MEDICAL HISTORY: Remarkable for COPD, on 3 liters of O2 chronically, hypertension, hypothyroidism, bipolar disorder, diabetes mellitus type 2, depression, anxiety disorder, passive tobacco, she currently vapes, restless leg syndrome, left hip fracture undergone arthroplasty in 2015, left hip hardware explantation due to MRSA infection in 08/2016, wheelchair bound since 2016, chronic pain, on chronic narcotics, chronic kidney disease. ALLERGIES: None. MEDICATIONS: From home include nebulized DuoNeb q.i.d. p.r.n., insulin supplements, Prozac, Synthroid, Lipitor, Voltaren, Lioresal, Voltaren, Remeron, Protonix, trazodone, Lyrica, Ambien, Cozaar, Requip, clonazepam, Lomotil, Symbicort 160 mcg 2 puffs daily, Spiriva once a day, ziprasidone, Diflucan, metformin. SOCIAL HISTORY: She has smoked, but quit more than a year ago. She also drinks socially. FAMILY HISTORY: Notable for COPD in the mother. REVIEW OF SYSTEMS: As mentioned above, otherwise 10-point system review negative. PHYSICAL EXAMINATION: [facility] [address] [place] [address] CONSULTATION Name: FARHAT POWER Wanda Room #: 358-P [facility] IN ..#: [id number] Admission: 07/06/18 Attend Phys: Jordan [place] MD Discharge: 07/07/18 Date of : 68 Report #: [id number] GENERAL: She is awake, alert, in no apparent distress. VITAL SIGNS: Temperature is 98 degrees Fahrenheit, pulse is 100, respiratory rate 24, blood pressure 146/84 mmHg, saturation 95%. HEENT: Normocephalic, atraumatic. NECK: Supple, without lymphadenopathy or thyromegaly. CHEST: Breath sounds are good without any obvious wheezes or rales. CARDIOVASCULAR: Normal S1, S2. There are no murmurs or gallop. There is no JVD. There is no carotid bruit. Pulses are 2+/4+ bilaterally. ABDOMEN: Soft, nontender, no organomegaly or masses felt. GENITOURINARY: Deferred. RECTAL: Deferred. EXTREMITIES: There is no edema, cyanosis or clubbing. LABORATORY DATA: Chest x-ray shows small lung volumes, otherwise clear. CT head was unremarkable. Electrolytes: Sodium 133, potassium 5.7, chloride 101, CO2 of 24, BUN is 39, creatinine is 2.1. WBC 3200, hemoglobin is 8.2, platelets are 61,000 without significant bandemia. Arterial blood gas revealed pH 7.27, pCO2 of 55, pO2 of 81 on 2 liters of O2. IMPRESSION: 1. Ibtoo-bw-xwxzhno hypercapnic hypoxic respiratory failure in this 48-year-old white female. Etiology related to altered mental status along with exacerbation of chronic obstructive pulmonary disease. 2. Altered mental status, felt related to narcotics. Mental status has improved following Narcan. 3. Bipolar disorder with anxiety, depression. 4. Chronic pain, on chronic narcotics. 5. Morbid obesity, the patient should be screened for possible sleep related breathing disorder as an outpatient. 6. Diabetes mellitus type 2. 7. Hypertension. 8. Chronic kidney disease. 9. Chronic thrombocytopenia. RECOMMENDATIONS: Agree plans for possible discharge. Given her recent symptoms, I would recommend prednisone 40 mg once a day for 5 days, continue current inhaled therapy regimen. Thank you for this consultation. <ELECTRONICALLY SIGNED> By: Bethel Quintanilla MD 07/08/18 1646 1637 0112 Bethel Qunitanilla MD /nt
--- NOTE | ~2018-07-06 | EKG ---
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 : 1970 Requested By: Michelle Olsen Order Number: [id number] MD: Jerome Jaramillo Measurements Intervals [place] Rate: 85 P: 6 MI: 135 QRS: -8 QRSD: 84 T: 33 QT: 383 QTc: 456 Interpretive Statements Sinus rhythm Low voltage, precordial leads Compared to ECG 05/27/2018 16:37:20 Low QRS voltage now present Sinus tachycardia no longer present Electronically Signed On 07-07-2018 17:09:20 CDT by Jerome Jaramillo [email or web address] <ELECTRONICALLY SIGNED> By: Jerome Jaramillo MD 07/07/18 1709 11 11 Jerome Jaramillo MD /EPI
[~2018-07-06 19:00] MED LIST changes: +DIFLUCAN200 MG PO; +KEFLEX500 M1 PO; +MEDROLDOSEPACK PO; +NORCO 10-325 T1 EACH PO; +NOVOLOG FL100 UNIT/M SUBQ; +NOVOLOG100 UNIT/1 SUBQ
[2018-07-06 19:01] VITALS: BP 129/86
[2018-07-06 19:22] LABS: ABSOLUTE NEUTROPHILS 2.4 thou/uL (1.4-8.2); BASOPHILS 0.8 % (0.0-2.0); EOSINOPHILS 1.5 % (0.0-3.0); HEMATOCRIT 27.9 % (37.0-47.0); HEMOGLOBIN 9.2 gm/dL (12.0-15.0); LYMPHOCYTES 29.5 % (24.0-44.0); MCH 29.6 pg (26.0-34.0); MCHC 32.9 g/dL (28.0-37.0); MONOCYTES 6.8 % (1.0-8.0); POLYS 61.4 % (36.0-66.0); RBC 3.09 mil/uL (4.20-5.00); RDW 16.3 % (10.5-14.5); WBC 3.9 thou/uL (4.0-11.0)
[2018-07-06 19:30] LABS: ANION GAP 4 mmol/L (7-16); BUN 37 mg/dL (7-18); CALCIUM 8.8 mg/dL (8.5-10.1); CHLORIDE 104 mmol/L (98-107); CO2 28 mmol/L (21-32); CREATININE 1.8 mg/dL (0.6-1.0); GLUCOSE 136 mg/dL (74-106); POTASSIUM 5.6 mmol/L (3.5-5.1); SODIUM 136 mmol/L (136-145)
[2018-07-06 19:38] LABS: ALBUMIN 3.2 g/dL (3.4-5.0); LIPASE 183 U/L (73-393); SGOT 33 U/L (15-37); SGPT 37 U/L (30-65); TOTAL BILIRUBIN 0.9 mg/dL (<0.1-1.0); TOTAL PROTEIN 7.8 g/dL (6.4-8.2); TROPONIN-I <0.06 ng/mL (<0.06)
[2018-07-06 19:50] LABS: ANISOCYTOSIS 1+; PLATELET COUNT 66 thou/uL (150-400)
[2018-07-06 20:03] LABS: BE(vivo) -2.1 mmol/L (-2 to +3); HCO3 25.1 mmol/L (22.0-26.0); PO2 81.8 mmHg (80.0-100.0); sO2 94.5 % (92.0-98.0)
[2018-07-06 20:04] LABS: pH 7.277 (7.360-7.450)
[2018-07-06 21:39] VITALS: BP 142/95
[2018-07-06 21:53] VITALS: BP 119/76
[2018-07-06 22:35] VITALS: BP 145/75
[2018-07-06] MEDS ORDERED: PROZAC20 MG PO (22:51)
[2018-07-07 01:42] LABS: HEMOGLOBIN 8.5 gm/dL (12.0-15.0); MCH 28.8 pg (26.0-34.0); MCHC 31.6 g/dL (28.0-37.0); MCV 91.1 fL (80.0-100.0); RBC 2.97 mil/uL (4.20-5.00); RDW 16.1 % (10.5-14.5); WBC 3.2 thou/uL (4.0-11.0)
[2018-07-07 02:05] LABS: CALCIUM 8.6 mg/dL (8.5-10.1); CREATININE 2.1 mg/dL (0.6-1.0); POTASSIUM 5.7 mmol/L (3.5-5.1)
[2018-07-07 04:30] VITALS: BP 143/79
[2018-07-07 07:08] LABS: BE(vivo) 1.1 mmol/L (-2 to +3); HCO3 26.9 mmol/L (22.0-26.0); PCO2 48.9 mmHg (35.0-45.0); PO2 66.9 mmHg (80.0-100.0); pH 7.359 (7.360-7.450); sO2 92.4 % (92.0-98.0)
[2018-07-07 11:24] VITALS: BP 146/84
[2018-07-07] MEDS ORDERED: LEVAQUIN 500 M500 M2 PO (11:49)
[2018-07-07 12:51] VITALS: BP 146/84
[2018-07-07 17:36] VITALS: BP 149/87
== END 2018-07-07 18:42 | disposition home or self-care (01) | DRG 917 ==
LOC: ER 19:00 → 3W 20:42 → EROBS 20:42 → 3W 22:11 → ENTRNSPT 07-07 17:47 → 3W 07-07 18:42
PROVIDERS: Nurse Practitioner Family
DX: T40.2X1A Poisoning by other opioids, accidental (unintentional), initial encounter (principal); G92 Toxic encephalopathy; J96.22 Acute and chronic respiratory failure with hypercapnia; J96.21 Acute and chronic respiratory failure with hypoxia; N17.9 Acute kidney failure, unspecified; J44.1 Chronic obstructive pulmonary disease with (acute) exacerbation; Z68.41 Body mass index [BMI] 40.0-44.9, adult; I12.9 Hypertensive chronic kidney disease with stage 1 through stage 4 chronic kidney disease, or unspecified chronic kidney disease; N18.3 Chronic kidney disease, stage 3 (moderate); E03.9 Hypothyroidism, unspecified; E11.22 Type 2 diabetes mellitus with diabetic chronic kidney disease; F31.9 Bipolar disorder, unspecified; F41.9 Anxiety disorder, unspecified; G25.81 Restless legs syndrome; D64.9 Anemia, unspecified; E87.5 Hyperkalemia; D69.6 Thrombocytopenia, unspecified; G89.29 Other chronic pain; E66.01 Morbid (severe) obesity due to excess calories; M19.90 Unspecified osteoarthritis, unspecified site; Z86.14 Personal history of Methicillin resistant Staphylococcus aureus infection; Y92.89 Other specified places as the place of occurrence of the external cause; Z87.891 Personal history of nicotine dependence; Z99.81 Dependence on supplemental oxygen; Z99.3 Dependence on wheelchair; Z87.81 Personal history of (healed) traumatic fracture; Z79.4 Long term (current) use of insulin; Z79.899 Other long term (current) drug therapy; Z23 Encounter for immunization
CPT/HCPCS: 10779

== ENCOUNTER 2018-07-18 19:22 | Inpatient (IN) | payer OTHER ==
[~2018-07-18] VITALS: Ht 162.6 cm; Wt 117.0 kg
--- NOTE | ~2018-07-18 | EKG ---
[place] [address] [address] [facility] [place] [address] ELECTROCARDIOGRAM REPORT Name: FARHAT POWER Wanda Room #: 247-P ADM IN M.R.#: [id number] Admission: 07/18/18 Attend Phys: Tomasz Trujillo Discharge: Date of : 68 Report #: [id number] THIS REPORT FOR: //name// [facility] ED Test Date: 2018-07-18 Test Time: 19:38:05 Pat Name: FARHAT POWER Department: Room: [facility] Gender: F Metalsmith: MELANIE : 1970 Requested By: Nati Saldivar Order Number: [id number] MD: Porfirio King Measurements Intervals [place] Rate: 89 P: 15 MS: 130 QRS: -8 QRSD: 83 T: 34 QT: 385 QTc: 469 Interpretive Statements Sinus rhythm Inferior infarct, old Compared to ECG 07/06/2018 19:12:26 No significant change was found Electronically Signed On 07-20-2018 9:07:31 CDT by Porfirio King [email or web address] <ELECTRONICALLY SIGNED> By: Porfirio King MD, [facility] 07/20/18906 37 37 Porfirio King MD, FACC /EPI
--- NOTE | ~2018-07-18 | HC ---
[facility] [place] [address] CONSULTATION Name: FARHAT POWER Wanda Room #: 247-P [facility] IN M.R.#: [id number] Admission: 07/18/18 Attend Phys: Tomasz Trujillo Discharge: 07/21/18 Date of : 68 Report #: [id number] THIS REPORT FOR: //name// CC: [facility] physician/PCP Tomasz Trujillo DATE OF SERVICE: 07/20/2018 CHIEF COMPLAINT: Gluteal ulcer. HISTORY OF PRESENT ILLNESS: Briefly, this is a 48-year-old black female with a history of bipolar disease, who came in through the Emergency Department, was admitted for shortness of breath. On admission it was noted the patient had what appeared to be a gluteal ulcer. We were asked to see the patient in regards to this. The patient herself states that she has had previous ulcers in the past, but they have all healed. The patient has no pain associated in the gluteal region. The patient denies any other associated ulcerations at this time. The patient states that the previous ulcer was before her prolonged sitting in a wheelchair, but has resolved several months ago. PAST MEDICAL HISTORY: Significant for degenerative joint disease, COPD, hypertension, hypothyroidism, diabetes mellitus, bipolar disease, anxiety, depression, previous history of MRSA in her left hip with final explantation of the hardware. The patient has been wheelchair bound ever since. CURRENT MEDICATIONS: Multiple, I reviewed the patient's medication list. DRUG ALLERGIES: None. SOCIAL HISTORY: The patient is a former smoker, quit several years ago. Does not drink alcohol. Lives independently. FAMILY HISTORY: Not pertinent to current medical condition. REVIEW OF SYSTEMS: CONSTITUTIONAL: The patient denies fevers or chills. NEUROLOGIC: The patient complains of mild generalized weakness, but no isolated weakness in arms or legs. EYES: No complaints. ENT: No complaints. CARDIAC: The patient denies chest pain, palpitations or peripheral edema. RESPIRATORY: The patient complains of shortness of breath with associated nonproductive cough and wheezes. GASTROINTESTINAL: The patient denies nausea, vomiting or abdominal pain. GENITOURINARY: The patient denies urgency or frequency. MUSCULOSKELETAL: No complaints. [facility] [address] [place] [address] CONSULTATION Name: FARHAT POWER Room #: 247-P [facility] IN [facility].#: [id number] Admission: 07/18/18 Attend Phys: Tomasz Trujillo Discharge: 07/21/18 Date of : 68 Report #: [id number] SKIN: There is no rash and there is what appears to be healed scars in the gluteal region, but no open ulcerations. PHYSICAL EXAMINATION: VITAL SIGNS: Temperature 36.3, pulse 100, respirations 13, BP 143/86. GENERAL: This is alert and oriented x 2, person and place, not time, black female who appears much older than her stated age. HEENT: Normocephalic, atraumatic. Mucous membranes are dry. Pupils are round. Sclerae white. NECK: Supple and nontender, without JVD. BACK: Nontender. LUNGS: Clear with occasional scattered wheeze. CHEST: Nontender. HEART: Regular. ABDOMEN: Soft, nontender. EXTREMITIES: The patient moves upper extremities without difficulty, the patient has very limited movement of the lower extremities. Bilateral heels are intact. Evaluation of the gluteal sacrococcygeal region reveals several old scars from previous decubitus ulcers; however, these are all healed and nothing is open at this time. NEUROLOGIC: Once again cranial nerves 2-12 are grossly intact. Motor: The patient is not able to move her lower extremities. LABORATORY DATA: White count 2.5, hemoglobin 9.1. Albumin is 3.1. IMPRESSION: 1. Multiple healed sacrococcygeal gluteal decubitus ulcers without any open ulcerations at this time. 2. Acute exacerbation of chronic obstructive pulmonary disease. 3. Diabetes mellitus. 4. Mild protein calorie malnutrition, albumin 3.1. PLAN: At this time, we will use barrier cream to the healed sites and recommend that she eat a high protein diet for continued healing. At this point in time, we will sign off. If there is any further need for wound care, please reconsult us. <ELECTRONICALLY SIGNED> By: Oswaldo Aponte MD 07/23/18 0909 0757 1335 Oswaldo Aponte MD /nt
[~2018-07-18 19:22] MED LIST changes: +LEVAQUIN 500 M500 M2 PO; +PROZAC20 MG PO
[2018-07-18 19:23] VITALS: BP 109/60
[2018-07-18 19:40] LABS: BE(vivo) 3.3 mmol/L (-2 to +3); HCO3 30.3 mmol/L (22.0-26.0); PO2 121.5 mmHg (80.0-100.0)
[2018-07-18 19:41] LABS: pH 7.321 (7.360-7.450)
[2018-07-18 19:53] LABS: ABSOLUTE NEUTROPHILS 3.7 thou/uL (1.4-8.2); BASOPHILS 0.7 % (0.0-2.0); EOSINOPHILS 1.3 % (0.0-3.0); HEMATOCRIT 25.5 % (37.0-47.0); HEMOGLOBIN 8.7 gm/dL (12.0-15.0); LYMPHOCYTES 21.6 % (24.0-44.0); MCHC 34.3 g/dL (28.0-37.0); MCV 87.5 fL (80.0-100.0); MONOCYTES 6.1 % (1.0-8.0); POLYS 70.4 % (36.0-66.0); RBC 2.92 mil/uL (4.20-5.00); RDW 16.7 % (10.5-14.5); WBC 5.3 thou/uL (4.0-11.0)
[2018-07-18 20:09] LABS: ANION GAP 7 mmol/L (7-16); BUN 41 mg/dL (7-18); CALCIUM 9.1 mg/dL (8.5-10.1); CHLORIDE 104 mmol/L (98-107); CO2 27 mmol/L (21-32); CREATININE 1.4 mg/dL (0.6-1.0); GLUCOSE 155 mg/dL (74-106); POTASSIUM 5.2 mmol/L (3.5-5.1)
[2018-07-18 20:10] LABS: SODIUM 138 mmol/L (136-145)
[2018-07-18 20:15] LABS: TROPONIN-I <0.06 ng/mL (<0.06)
[2018-07-18 20:28] LABS: ANISOCYTOSIS 1+; PLATELET COUNT 88 thou/uL (150-400); POLYCHROMASIA SLIGHT
[2018-07-18 22:03] LABS: TOTAL BILIRUBIN 1.9 mg/dL (<0.1-1.0); TOTAL PROTEIN 7.7 g/dL (6.4-8.2)
[2018-07-18 22:04] LABS: DIRECT BILIRUBIN 0.2 mg/dL (<0.1-0.3)
[2018-07-19] VITALS (18 sets, daily range): BP systolic 93–151; BP diastolic 39–101
[2018-07-19 08:07] LABS: HEMATOCRIT 22.4 % (37.0-47.0); HEMOGLOBIN 7.4 gm/dL (12.0-15.0); MCH 29.2 pg (26.0-34.0); MCV 88.5 fL (80.0-100.0); RBC 2.53 mil/uL (4.20-5.00); RDW 16.2 % (10.5-14.5); WBC 3.3 thou/uL (4.0-11.0)
[2018-07-19 08:15] LABS: CALCIUM 8.5 mg/dL (8.5-10.1); CREATININE 1.7 mg/dL (0.6-1.0); POTASSIUM 4.6 mmol/L (3.5-5.1)
[2018-07-19 08:46] LABS: BE(vivo) 2.5 mmol/L (-2 to +3); HCO3 29.5 mmol/L (22.0-26.0); PCO2 60.6 mmHg (35.0-45.0); PO2 91.1 mmHg (80.0-100.0); pH 7.305 (7.360-7.450)
[2018-07-20] VITALS (13 sets, daily range): BP systolic 92–155; BP diastolic 50–102
[2018-07-20 04:54] LABS: HEMATOCRIT 28.3 % (37.0-47.0); HEMOGLOBIN 9.1 gm/dL (12.0-15.0); MCH 28.6 pg (26.0-34.0); MCHC 32.1 g/dL (28.0-37.0); MCV 89.1 fL (80.0-100.0); RBC 3.18 mil/uL (4.20-5.00); WBC 2.5 thou/uL (4.0-11.0)
[2018-07-20 05:08] LABS: ALBUMIN 3.1 g/dL (3.4-5.0); CALCIUM 8.9 mg/dL (8.5-10.1); CREATININE 1.2 mg/dL (0.6-1.0); POTASSIUM 4.3 mmol/L (3.5-5.1)
[2018-07-21] VITALS (10 sets, daily range): BP systolic 127–151; BP diastolic 71–93
[2018-07-21] MEDS ORDERED: AMBIEN 5 MG TABL5 M1 PO (09:12)
[2018-07-21] MEDS ORDERED: LIORESAL 10 MG10 MG PO (09:14)
[2018-07-21] MEDS ORDERED: LASIX 40 MG TAB40 M2 PO (09:16)
== END 2018-07-21 17:45 | disposition home health service (06) | DRG 917 ==
LOC: ER 19:22 → EROBS 23:00 → ICU 23:00
PROVIDERS: Emergency Medicine; Hospitalist; Nurse Practitioner Family
PROC: 5A09357 Assistance with Respiratory Ventilation, Less than 24 Consecutive Hours, Continuous Positive Airway Pressure (ICD-10-PCS; principal; 2018-07-18)
PROC: 5A09357 Assistance with Respiratory Ventilation, Less than 24 Consecutive Hours, Continuous Positive Airway Pressure (ICD-10-PCS; 2018-07-20)
PROC: 5A09357 Assistance with Respiratory Ventilation, Less than 24 Consecutive Hours, Continuous Positive Airway Pressure (ICD-10-PCS; 2018-07-21)
DX: T40.691A Poisoning by other narcotics, accidental (unintentional), initial encounter (principal); G92 Toxic encephalopathy; J96.21 Acute and chronic respiratory failure with hypoxia; J96.22 Acute and chronic respiratory failure with hypercapnia; J44.1 Chronic obstructive pulmonary disease with (acute) exacerbation; Z68.41 Body mass index [BMI] 40.0-44.9, adult; E44.0 Moderate protein-calorie malnutrition; E03.9 Hypothyroidism, unspecified; T42.4X1A Poisoning by benzodiazepines, accidental (unintentional), initial encounter; M19.90 Unspecified osteoarthritis, unspecified site; N18.3 Chronic kidney disease, stage 3 (moderate); I12.9 Hypertensive chronic kidney disease with stage 1 through stage 4 chronic kidney disease, or unspecified chronic kidney disease; G25.81 Restless legs syndrome; G89.4 Chronic pain syndrome; E66.01 Morbid (severe) obesity due to excess calories; E11.22 Type 2 diabetes mellitus with diabetic chronic kidney disease; F31.9 Bipolar disorder, unspecified; F41.9 Anxiety disorder, unspecified; D64.9 Anemia, unspecified; D69.6 Thrombocytopenia, unspecified; Y92.89 Other specified places as the place of occurrence of the external cause; Z87.891 Personal history of nicotine dependence; Z86.14 Personal history of Methicillin resistant Staphylococcus aureus infection; Z99.81 Dependence on supplemental oxygen; Z87.81 Personal history of (healed) traumatic fracture; Z99.3 Dependence on wheelchair; Z79.84 Long term (current) use of oral hypoglycemic drugs; Z79.899 Other long term (current) drug therapy; Z82.5 Family history of asthma and other chronic lower respiratory diseases
CPT/HCPCS: 10078; 10203